=== PATIENT | female | born 1990 | race Caucasian/White ===

== ENCOUNTER 2021-06-27 11:35 | Emergency (ER) | payer OTHER ==
[2021-06-27] MEDS ORDERED: DIPHTH,PERTUSS(ACELL),TET 0.5 ML DISP.SYRIN IM ONE ×2 (11:42→11:49)
[2021-06-27] MEDS ORDERED: CEPHALEXIN MONOHYDRATE 500 MG CAPSULE (UD) PO ONE (11:44)
[2021-06-27 11:56] VITALS: BP 130/91; PULSE 77; TEMP 98.7; BMI 22.1
[2021-06-27] MEDS ORDERED: CEPHALEXIN MONOHYDRATE 500 MG CAPSULE (UD) ONE (12:28)
== END 2021-06-27 12:38 | disposition home or self-care (01) ==
LOC: FER 11:35
PROC: 0HQGXZZ Repair Left Hand Skin, External Approach (ICD-10-PCS; principal; 2021-06-27)
PROC: 3E0234Z Introduction of Serum, Toxoid and Vaccine into Muscle, Percutaneous Approach (ICD-10-PCS; 2021-06-27)
DX: S61.412A Laceration without foreign body of left hand, initial encounter (principal)
CPT/HCPCS: 73130-TC-LT-FY; 90715; 99284-25

== ENCOUNTER 2021-07-03 16:28 | Emergency (ER) | payer OTHER ==
[2021-07-03 17:01] VITALS: BP 123/86; PULSE 63; TEMP 98.5; BMI 22.1
== END 2021-07-03 16:50 | disposition home or self-care (01) ==
LOC: FER 16:28
DX: Z48.02 Encounter for removal of sutures (principal)
CPT/HCPCS: 99281-25